=== PATIENT | male | born 2005 | race Caucasian/White ===

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

== ENCOUNTER 2025-03-25 16:24 | Emergency (ER) | payer MEDICAID, SELFPAY ==
[2025-03-25 16:29] VITALS: BP 127/79; PULSE 91; RESP 16; TEMP 36.9; O2SAT 99; BMI 22.9
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
--- NOTE | 2025-03-25 16:40 | CTR_ITS ---
PROCEDURE INFORMATION: Exam: CT Neck With Contrast Exam date and time: 03/25/2025 4:55 PM Age: 19 years old Clinical indication: Mass, lump, or swelling in neck; Left; Prior surgery; Surgery date: <1 month; Surgery type: Jaw 2 wks ago; Additional info: L jaw selling TECHNIQUE: Imaging protocol: Computed tomography of the neck with contrast. Radiation optimization: All CT scans at this facility use at least one of these dose optimization techniques: automated exposure control; mA and/or kV adjustment per patient size (includes targeted exams where dose is matched to clinical indication); or iterative reconstruction. Contrast material: OMNI 350; Contrast volume: 100 ml; Contrast route: INTRAVENOUS (IV); COMPARISON: No relevant prior studies available. RADIATION DOSE METRICS: Total DLP (mGy-cm): 286.28 FINDINGS: Soft tissues: There is asymmetric soft tissue swelling involving the left lower facial soft tissues mainly lateral to the left mandible including some thickening of the left platysma muscle and some swelling of the left masseter muscle. Along the deep anterior margin of the left masseter muscle adjacent to the left mandible is a septated oval-shaped low density process or small fluid collection best seen on delayed axial images series 9 images 9 through 16. This could represent a small abscess or phlegmon. It measures 22 mm AP by 7 mm in thickness. Additionally there appears to be somewhat prominent non necrotic lymph nodes in the adjacent anterior left neck and submandibular region likely reactive. Additionally there appears to be some stranding/edema in the contralateral right lower facial soft tissues superficially in the subcutaneous fat as well as mild swelling of the right masseter muscle. There is a focal gas collection along the deep margin of the right masseter muscle adjacent to the body of the right mandible in the buccal space seen on delayed series 9 images 6 through 15. This is nonspecific and could be related to surgery or other ongoing process including localized infection. Correlate clinically. Salivary glands: Left parotid gland shows mild asymmetric enlargement and mild increased enhancement. Underlying left parotitis could be present. No stone disease. Right parotid gland unremarkable. Pharynx: Unremarkable. No significant tonsillar enlargement. Larynx: Unremarkable. Epiglottis is normal. Thyroid: Normal. No enlarged or calcified nodules. Trachea: Visualized trachea is unremarkable. Lungs: Unremarkable as visualized. Lymph nodes: Multiple small to intermediate sized non necrotic lymph nodes along the neck soft tissues bilaterally most likely reactive in nature. Bones/joints: There are bilateral essentially nondisplaced fractures through the angles of both sides of the mandible. There are fixation wires along the anterolateral mandible and maxilla. CT/CT neck w con* [id number] IMPRESSION: 1. There are bilateral essentially nondisplaced fractures through the angles of both sides of the mandible. There are fixation wires along the anterolateral mandible and maxilla. 2. There is asymmetric soft tissue swelling involving the left lower facial soft tissues which is mainly lateral to the left mandible including some thickening of the left platysma muscle and swelling of the left masseter muscle. Findings nonspecific but compatible with a cellulitis. 3. Along the anterior medial margin of the left masseter muscle adjacent to the left mandible is a partially septated oval-shaped low-density process or fluid collection best seen on delayed axial images series 9, images 9-16. This could represent a small abscess or phlegmon. It measures 22 mm x 7 mm. There appear to be reactive adjacent lymph nodes in the anterior left neck and submandibular region. 4. Additionally there appears to be some stranding and edema in the contralateral right lower lateral facial soft tissues in the subcutaneous fat mainly as well as mild swelling of the right masseter muscle. There is a focal oval-shaped gas collection in this region in the buccal space lateral to the posterior mandible as described above measuring 14 mm by 6 mm best seen on delayed series 9, images 6-15. It appears to have a thin soft tissue capsule at its periphery but is not associated with definitive fluid. This is nonspecific and may be related to recent surgery or other ongoing process including localized infection. 5. The left parotid gland shows mild asymmetric enlargement and mild increased enhancement suggesting an underlying left parotitis could be present and related to the left facial presumed infection. No stone disease.
[2025-03-25] MEDS: iohexol 350 mg/mL 500 mL Btl (per mL) IV (16:56)
[2025-03-25 16:59] LABS: Basophils % 0.3 %; Eosinophils # 0.1 10^3/uL (0.0-0.8); Eosinophils % 0.7 %; Hematocrit 45.1 % (37-53); Lymphocytes # 2.1 10^3/uL (1.5-6.5); Lymphocytes % 14.3 %; Mean Corpuscular HGB Conc 31.9 g/dL (30-55); Mean Corpuscular Hemoglobin 27.7 pg (27-33); Mean Corpuscular Volume 86.7 fl (82-101); Mean Platelet Volume 10.8 fL (7.4-10.4); Monocytes # 1.5 10^3/uL (0.2-0.9); Monocytes % 9.9 %; Neutrophils # 10.96 10^3/uL (1.8-8.0); Neutrophils % 74.5 %; Nucleated Red Blood Cells % 0 %; Platelet Count 329 10^3/cmm (157-399); White Blood Count 14.71 10^3/uL (4.5-13.0)
[2025-03-25 17:15] VITALS: RESP 18; O2SAT 99
[2025-03-25 17:15] LABS: Alanine Aminotransferase 12 U/L (0-41); Alkaline Phosphatase 130 U/L (40-130); Aspartate Amino Transferase 12 U/L (0-40); Blood Urea Nitrogen 13 mg/dL (6-20); Calcium 9.4 mg/dL (8.5-10.5); Carbon Dioxide 28 mmol/L (22-29); Chloride 97 mmol/L (98-107); Creatinine Clr Calc Pharmacy 151.7292; Globulin 3.7 g/dL (1.3-4.6); Glomerular Filtration Rate 123.2 mL/min (90-130); Glucose 76 mg/dL (65-115); Osmolality Calculated 281 mOsm/kg (285-295); Sodium 136 mmol/L (136-145); Total Bilirubin 0.3 mg/dL (0.15-1.2); Total Protein 7.7 g/dL (6.6-8.7)
[2025-03-25] MEDS: morphine 4 mg/mL SDV 1 mL IVP (17:15)
[2025-03-25] MEDS: ondansetron 2 mg/ML SDV 2 mL 4 MG IVP (17:15)
[2025-03-25 17:16] VITALS: BP 122/82; PULSE 89; RESP 18; O2SAT 99
[2025-03-25 17:18] LABS: Anion Gap 15.4 (5-19); Potassium 4.4 mmol/L (3.5-5.1)
[2025-03-25 17:19] LABS: Erythrocyte Sedimentation Rate 13 mm/hr (0-10)
[2025-03-25 17:21] LABS: C Reactive Protein 24.3 mg/L (0.0-4.9)
[2025-03-25] MEDS: sulfamethoxazole-trimeth DS 160-800 mg Tablet 1 TAB PO (19:14)
[2025-03-25 20:43] VITALS: BP 113/67; PULSE 85; RESP 16; O2SAT 96
== END 2025-03-25 20:28 | disposition home or self-care (01) ==
PROVIDERS: Emergency Medicine; Emergency Provider Student in an Organized Health Care Education/Training Program
DX: L03.211 Cellulitis of face (principal)
CPT/HCPCS: 70491; 80053; 85025; 85651; 86140; 96374; 96375; 99285; J2270; J2405; J9999

== ENCOUNTER 2025-07-30 13:44 | Emergency (ER) | payer MEDICAID, SELFPAY ==
[2025-07-30 13:47] VITALS: BP 122/74; PULSE 73; RESP 14; TEMP 36.7; O2SAT 99; BMI 20.9
[2025-07-30 13:50] VITALS: BP 122/72; PULSE 78; RESP 16; O2SAT 98
--- NOTE | 2025-07-30 13:53 | W.ED.GENADLT ---
HPI - General Adult General: Chief complaint: General Medical Stated complaint: R side jaw swelling, pain Time Seen by Provider: 07/30/25 13:53 History of Present Illness: 19-year-old male presents emergency room with swelling on the right side of his mandible. He previously had a fracture earlier this year his jaw was wired shut he had a follow-up visit to the ER in March where he had an infection. He has now developed large swelling there and some mild pain. Associated symptoms: Deny chest pain, dyspnea or rash Related Data Previous Rx's ?Medication ?Instructions ?Recorded amoxicillin 875 mg-potassium 1 tab PO BID #20 tabs 07/30/25 clavulanate 125 mg tablet hydrocodone 5 mg-acetaminophen 325 1 tab PO Q6H PRN pain #10 tabs 07/30/25 mg tablet Allergies Allergy/AdvReac Type Severity Reaction Status Date / Time No Known Allergies Allergy Verified 07/30/25 13:50 Review of Systems Const: Denies: fever(s) or chills ENMT: Reports: dental pain and sinus pain Card: Denies: chest pain Resp: Denies: dyspnea GI: Denies: abdominal pain : Denies: dysuria, urinary frequency or urinary urgency Musc: Denies: neck pain or back pain Skin/Breast: Denies: rash Physical Exam Const: GENERAL APPEARANCE: cooperative ORIENTATION/CONSCIOUSNESS: Yes awake, Yes oriented to person, Yes oriented to place and Yes oriented to time HENMT: COMMON NORMALS: normocephalic, atraumatic and hearing grossly normal bilaterally HEAD & SCALP: normocephalic and atraumatic Resp: COMMON NORMALS: normal respiratory effort, No retractions, No use of accessory muscles and clear to auscultation bilaterally AUSCULTATION: clear to auscultation bilaterally Cardio: COMMON NORMALS: regular rate, regular rhythm and No murmurs present (Cardio) RATE: regular rate RHYTHM: regular rhythm Extremity: COMMON NORMALS: normal to inspection, capillary refill normal, no clubbing, cyanosis or edema, no calf tenderness and no pedal edema Neuro: SENSORIUM/ORIENTATION: Yes oriented to person, Yes oriented to place and Yes oriented to time Skin: COMMON NORMALS: no rashes or lesions noted GENERAL SKIN EXAM: no rashes or lesions noted Course Vital Signs: Vital signs: Vital Signs Temperature 98.1 F 07/30/25 13:47 Pulse Rate 78 07/30/25 13:50 Respiratory Rate 16 07/30/25 13:50 Blood Pressure 122/72 07/30/25 13:50 Pulse Oximetry 98 07/30/25 13:50 Oxygen Delivery Me thod Room Air 07/30/25 13:47 MDM - General Adult Medical Decision Making Patient has a subperiosteal abscess no other dental infections. Looking back to the chart he had a similar presentation in March but does not look like he ever had appropriate follow-up and no fracture looks like it may not have healed completely. He is not acutely septic is well-appearing has obvious swelling on the right side of the jaw contacted oral surgery through [facility] where he was seen previously make arrangements for follow-up for definitive care. Advised patient he should call the surgeon who he had seen previously as well as himself to ensure that he gets follow-up. Stressed him the importance of appropriate follow-up after this visit Medical Records I reviewed the patient's medical records. Lab Data I reviewed the patient's lab results. 07/30/25 14:[address] 07/30/25 14:08 IMPRESSION: 1. Focal subperiosteal abscess measures 11 x 8 mm along the RIGHT posterior mandibular body closely associated with dental caries. There is an additional very thin subperiosteal component of the abscess extending anteriorly. 2. Marked dental caries associated with the posterior RIGHT mandibular molars and associated fracture through the mandible. This may be a pathologic fracture due to the marked thinning of the bony cortex from the dental caries. Fracture was previously described on 03/25/2025 and has not healed. 3. Cervical chain lymphadenopathy. Laboratory Results WBC 10.96 10^3/uL (4.5-13.0) 07/30/25 14:15 RBC 5.28 10^6/uL (3.85-5.65) 07/30/25 14:15 Hgb 14.50 g/dL (13.2-15.6) 07/30/25 14:15 Hct 43.9 % (37-53) 07/30/25 14:15 MCV 83.1 fl (82-101) 07/30/25 14:15 MCH 27.5 pg (27-33) 07/30/25 14:15 MCHC 33.0 g/dL (30-55) 07/30/25 14:15 RDW 13.0 % (12.1-15.1) 07/30/25 14:15 Plt Count 237 10^3/cmm (157-399) 07/30/25 14:15 MPV 12.1 fL (7.4-10.4) H 07/30/25 14:15 Neut % (Auto) 78.9 % 07/30/25 14:15 Lymph % (Auto) 13.4 % 07/30/25 14:15 [place] % (Auto) 6.8 % 07/30/25 14:15 Eos % (Auto) 0.4 % 07/30/25 14:15 Baso % (Auto) 0.3 % 07/30/25 14:15 Neut # (Auto) 8.66 10^3/uL (1.8-8.0) H 07/30/25 14:15 Lymph # (Auto) 1.5 10^3/uL (1.5-6.5) 07/30/25 14:15 [place] # (Auto) 0.7 10^3/uL (0.2-0.9) 07/30/25 14:15 Eos # (Auto) 0.0 10^3/uL (0.0-0.8) 07/30/25 14:15 Baso # (Auto) 0.0 10^3/uL (0.0-0.1) 07/30/25 14:15 Nucleated RBC % (auto) 0 % 07/30/25 14:15 Nucleated RBCs # 0.0 /100WBC 07/30/25 14:15 All radiology interpretation(s) finalized by discharge Discharge Plan Discharge Patient Disposition: Home Clinical Impression: Subperiosteal abscess of jaw, Abscess, dental Condition: Stable Prescriptions: New amoxicillin-pot clavulanate 875-125 mg tablet 1 tab PO BID Qty: 20 0RF hydrocodone-acetaminophen 5-325 mg tablet 1 tab PO Q6H PRN (Reason: pain) Qty: 10 0RF Discharge Orders: Discharge ED (Routine); Ordered 07/30/25 Ordered By: Jeevan Conway Discharge Diet: Soft Mechanical Discharge Activity: Increase activity as tolerated Patient Instructions: Opioid Safety, Pain Management, Patient Portal & Chantal Instructions Activity Restrictions/Additional Instructions: Thank you for choosing [facility] [place] for your healthcare needs today. It is very important that you follow up as instructed or that you return to the Emergency Department should you have concerns or if your condition changes or worsens in any way. Emergency department visits are focused on emergent conditions, in some cases you may require further evaluation on an outpatient basis. You were seen in the emergency room with a complaint of some swelling on the right side of your jaw. On CT it shows there is a abscess in the jaw as well as several other dental caries you are started on antibiotics you will need to see the doctor who did your previous jaw surgery back. You should contact their office to make a follow-up appointment we are also contacting them and forwarding the CT that was done today. You were given oral antibiotics and pain medications to use recommend soft diet. (Please note that included in your discharge packet is information concerning opioid safety and pain management. This information is given to all patients were discharged from the ER regardless of their discharge diagnosis or the medicines they usually take or are prescribed.) Print Language: Polish Coding Level of Care Code ED Exercise Manager for Franca Martel
--- NOTE | 2025-07-30 14:08 | CT_ITS ---
WS: [id number] CT FACIAL BONES with contrast HISTORY: Previous mandible fracture, right sided mandible swelling TECHNIQUE: Images obtained from the supraorbital location through the mandible. Soft tissue and bone windows are reviewed. Coronal and sagittal reformats have also been submitted. DLP: 618.[address] scans at [facility] use at least one of these dose optimization techniques: automated exposure control; mA and/or kV adjustment per patient size (includes targeted exams where dose is matched to clinical indication); or iterative reconstruction. Contrast: Omnipaque 350; 100 cc. COMPARISON: None available. Subperiosteal abscess centered along the RIGHT mandibular body measures 11 x 8 mm. There is a smaller thinner component extending more anteriorly by 8 mm. There is extensive lucency and dental caries surrounding several of the molars in the RIGHT mandible. There is a nondisplaced and possible pathologic fracture extending through both the inner and outer tables of the mandible at the site of the dental caries and abscess. There is additional soft tissue edema noted along the RIGHT mandibular body. No additional collections. Enlarged hyperemic level 1B lymph nodes on the RIGHT. Additional hyperemic enlarged bilateral level 2A and 2B lymph nodes. Nasal bones are intact. Zygomatic arches are intact. No air-fluid levels within the sinuses. Mastoid air cells are clear. CT/CT facial bones w con [id number] IMPRESSION: 1. Focal subperiosteal abscess measures 11 x 8 mm along the RIGHT posterior ma ndibular body closely associated with dental caries. There is an additional lillie y thin subperiosteal component of the abscess extending anteriorly. 2. Marked dental caries associated with the posterior RIGHT mandibular molars and associated fracture through the mandible. This may be a pathologic fracture due to the marked thinning of the bony cortex from the dental caries. Fracture was previously described on 03/25/2025 and has not healed. 3. Cervical chain lymphadenopathy.
[2025-07-30 14:24] LABS: Hematocrit 43.9 % (37-53); Hemoglobin 14.50 g/dL (13.2-15.6); Mean Corpuscular HGB Conc 33.0 g/dL (30-55); Mean Corpuscular Hemoglobin 27.5 pg (27-33); Mean Corpuscular Volume 83.1 fl (82-101); Nucleated Red Blood Cells % 0 %; Platelet Count 237 10^3/cmm (157-399); Red Blood Count 5.28 10^6/uL (3.85-5.65); White Blood Count 10.96 10^3/uL (4.5-13.0)
[2025-07-30] MEDS: iohexol 350 mg/mL 500 mL Btl (per mL) IV (14:33)
--- NOTE | 2025-07-30 15:36 | PC.NURSE ---
tech came and got me, afraid patient was peeling the wall. Upon arriving at the patients room I observed the patient laying on his stomach on the floor, patient would not answer any questions. Observed where the patient has removed his ID bracelet and his allergy Bracelet and they were scattered about the room
[2025-07-30 16:13] VITALS: BP 141/83; PULSE 81; O2SAT 100
== END 2025-07-30 16:16 | disposition home or self-care (01) ==
PROVIDERS: Emergency Provider Family Medicine
DX: M27.2 Inflammatory conditions of jaws (principal); K04.7 Periapical abscess without sinus
CPT/HCPCS: 36415; 70487; 85025; 99285